=== PATIENT | female | born 1965 | race Caucasian/White ===

== ENCOUNTER 2020-08-18 15:10 | Emergency (ER) | payer OTHER ==
[~2020-08-18] VITALS: Ht 177.8 cm; Wt 95.3 kg
[2020-08-18] MEDS ORDERED: EMPA10TA PO (15:18)
[2020-08-18] MEDS ORDERED: ONDANSETRON 4 MG/2 ML VIAL IV ONE (15:30)
[2020-08-18] MEDS ORDERED: HYDROMORPHONE 1 MG/1 ML DISP.SYRIN IV ONE (15:30)
[2020-08-18] MEDS ORDERED: IV NORMAL SALINE 1000 ML BAG IV ONE (15:30)
[2020-08-18] MEDS ORDERED: ONDANSETRON 4 MG/2 ML VIAL ONE (15:33)
[2020-08-18] MEDS ORDERED: HYDROMORPHONE 1 MG/1 ML DISP.SYRIN ONE (15:35)
[2020-08-18 15:37] LABS: *BILIRUBIN,URIN NEGATIVE (NEGATIVE); *CLARITY,URINE CLEAR (CLEAR); *COLOR,URINE YELLOW (YELLOW); *KETONES,URINE 4+ (NEGATIVE); *UROBILINOGEN,URINE 0.2 E.U./dl (NORMAL); LEUKOCYTE ESTERASE ,URINE NEGATIVE (NEGATIVE); NITRITE, URINE NEGATIVE (NEGATIVE); PH,URINE 5.5 (5.0-8.0)
[2020-08-18 15:38] LABS: *BLOOD, URINE TRACE (NEGATIVE); UGLUCOSE 2+ (NEGATIVE)
[2020-08-18 15:39] LABS: *URINE HCG, QUAL NEGATIVE (NEGATIVE)
[2020-08-18 15:45] LABS: BASOPHILS % (AUTO) 0.2 % (0.0-2.0); EOSINOPHILS % (AUTO) 0.1 % (0.0-7.0); HEMATOCRIT 43.4 % (31.2-41.9); LYMPHOCYTES # (AUTO) 0.3 K/uL (20.0-40.0); LYMPHOCYTES % (AUTO) 3.6 % (20.5-51.5); MEAN CORPUSCULAR HEMOGLOBIN 29.3 uug (24.7-32.8); MEAN CORPUSCULAR HGB CONC 35 g/dL (32.3-35.6); MEAN CORPUSCULAR VOLUME 84.9 fL (75.5-95.3); MONOCYTES # (AUTO) 0.5 K/uL (2.0-10.0); MONOCYTES % (AUTO) 6.3 % (0.0-11.0); NEUTROPHILS # (AUTO) 7.5 K/uL (1.8-8.9); NEUTROPHILS % (AUTO) 89.8 % (38.5-71.5); PLATELET COUNT (AUTO) 126 K/uL (179-408); RED BLOOD CELL COUNT(AUTO) 5.11 MIL/uL (3.63-4.92); WHITE BLOOD COUNT (AUTO) 8.4 K/uL (3.8-11.8)
[2020-08-18 15:51] LABS: POTASSIUM 4.1 mmol/L (3.5-5.1)
[2020-08-18 15:56] LABS: BILIRUBIN,DIRECT 0.3 mg/dL (0.0-0.2); BILIRUBIN,TOTAL 1.3 mg/dL (0.2-1.0); TOTAL PROTEIN, SERUM 7.2 g/dL (6.4-8.2)
--- NOTE | 2020-08-18 16:46 | NUR ---
Patient is resting comfortably in bed with eyes closed, NAD noted.
--- NOTE | 2020-08-18 17:31 | NUR ---
IV removed. Catheter intact and site benign. Pressure and 4x4 gauze applied to site. No bleeding noted.
--- NOTE | 2020-08-18 17:31 | NUR ---
Patient discharged to home in stable condition. Written and verbal after care instructions given. Patient verbalizes understanding of instructions. Stressed follow up or return to ER for worsening s/s.
--- NOTE | 2020-08-18 17:31 | NUR ---
Note [email or web address] in EDM - 08/18/20 at 1731 by MYOUABIAN IV removed. Catheter intact and site benign. Pressure and 4x4 gauze applied to site. No bleeding noted.
[2020-08-18 17:32] VITALS: BP 140/79
[2020-08-18 19:32] LABS: RBC,URINE 0-3 /HPF (0-3); WBC,URINE 0-3 /HPF (0-3)
[2020-08-18 19:33] LABS: BACTERIA,URINE NONE SEEN /HPF (NONE SEEN); SQUAMOUS EPITHELIAL CELL,UR NONE SEEN /HPF (NONE SEEN); YEAST,URINE RARE /HPF (NONE SEEN)
== END 2020-08-18 17:37 | disposition home or self-care (01) ==
LOC: ER 15:10
DX: M47.896 Other spondylosis, lumbar region (principal); R30.0 Dysuria; R50.9 Fever, unspecified; R11.0 Nausea; E11.9 Type 2 diabetes mellitus without complications; Z79.84 Long term (current) use of oral hypoglycemic drugs; Z88.0 Allergy status to penicillin; Z88.2 Allergy status to sulfonamides
CPT/HCPCS: 36415; 72100; 80048; 80076; 81001; 83690; 84703; 85025; 87086 ×2; 96361; 96374; 96375; 99284; J1170; J2405; A4663

== ENCOUNTER 2020-08-27 14:04 | Inpatient (IN) | payer OTHER ==
[~2020-08-27] VITALS: Ht 177.8 cm; Wt 95.3 kg
[~2020-08-27 14:04] MED LIST: EMPA10TA PO
[2020-08-27] MEDS ORDERED: HYDROMORPHONE 1 MG/1 ML DISP.SYRIN IV ONE ×2 (14:30→16:30)
[2020-08-27] MEDS ORDERED: IV NORMAL SALINE 1000 ML BAG IV ONE (14:30)
[2020-08-27] MEDS ORDERED: VANCOMYCIN IV 1,000 MG in IV DEXTROSE 5% 250 ML IV ONE (14:30)
[2020-08-27] MEDS ORDERED: ONDANSETRON 4 MG/2 ML VIAL IV ONE ×2 (14:30→16:30)
[2020-08-27] MEDS ORDERED: HYDROMORPHONE 1 MG/1 ML DISP.SYRIN ONE ×2 (14:38→16:31)
[2020-08-27] MEDS ORDERED: ONDANSETRON 4 MG/2 ML VIAL ONE ×2 (14:39→16:31)
[2020-08-27] MEDS ORDERED: VANCOMYCIN IV 200 ML ONE (14:39)
[2020-08-27 14:51] LABS: BASOPHILS # (AUTO) 0.2 K/uL (0.0-8.0); BASOPHILS % (AUTO) 1.3 % (0.0-2.0); EOSINOPHILS % (AUTO) 0.2 % (0.0-7.0); HEMATOCRIT 39.1 % (31.2-41.9); HEMOGLOBIN 13.2 g/dL (10.9-14.3); LYMPHOCYTES # (AUTO) 0.5 K/uL (20.0-40.0); LYMPHOCYTES % (AUTO) 2.9 % (20.5-51.5); MEAN CORPUSCULAR HEMOGLOBIN 28.3 uug (24.7-32.8); MEAN CORPUSCULAR HGB CONC 34 g/dL (32.3-35.6); MEAN CORPUSCULAR VOLUME 83.7 fL (75.5-95.3); MONOCYTES # (AUTO) 0.7 K/uL (2.0-10.0); MONOCYTES % (AUTO) 4.2 % (0.0-11.0); NEUTROPHILS # (AUTO) 14.9 K/uL (1.8-8.9); NEUTROPHILS % (AUTO) 91.4 % (38.5-71.5); PLATELET COUNT (AUTO) 297 K/uL (179-408); RED BLOOD CELL COUNT(AUTO) 4.67 MIL/uL (3.63-4.92); WHITE BLOOD COUNT (AUTO) 16.3 K/uL (3.8-11.8)
[2020-08-27 15:10] LABS: BILIRUBIN,DIRECT 0.4 mg/dL (0.0-0.2); BILIRUBIN,TOTAL 0.8 mg/dL (0.2-1.0); CREATININE 0.8 mg/dL (0.6-1.3); TOTAL PROTEIN, SERUM 6.6 g/dL (6.4-8.2)
[2020-08-27 15:27] LABS: POTASSIUM 2.8 mmol/L (3.5-5.1)
[2020-08-27] MEDS ORDERED: POTASSIUM CHLORIDE 20 MEQ TAB.PRT.SR PO ONE (15:45)
[2020-08-27] MEDS ORDERED: POTASSIUM CHLORIDE 20 MEQ TAB.PRT.SR ONE (15:55)
--- NOTE | 2020-08-27 16:06 | NUR ---
DENICE FROM [facility] CALLED AND GOT THE UPDATE ON THE PT CASE.
--- NOTE | 2020-08-27 16:40 | NUR ---
PT AUTHORIZED TO STAY HERE AT [facility] BY [facility].
[2020-08-27] MEDS ORDERED: INSULIN REGULAR, HUMAN 300 UNIT/3 ML VIAL SQ PRN (17:45)
[2020-08-27] MEDS ORDERED: DEXTROSE 50% 50 ML DISP.SYRIN IV PRN (17:45)
[2020-08-27] MEDS ORDERED: MAGNESIUM HYDROXIDE 30 ML LIQUID UDC PO PRN (17:45)
[2020-08-27] MEDS ORDERED: levoFLOXacin 500 MG/D5W 100 ML ONE (18:32)
[2020-08-27] MEDS: levoFLOXacin 500 MG/D5W 500 MG in PREMIXED 1 EACH IV SCH (18:34)
--- NOTE | 2020-08-27 19:14 | NUR ---
assissted pt to bathroom, unsteady gait, fall risk
[2020-08-27] MEDS: HYDROCODONE/APAP 5-325MG TABLET PO PRN (20:19)
[2020-08-27] MEDS ORDERED: HYDROCODONE/APAP 5-325MG TABLET ONE (20:23)
[2020-08-27] MEDS: BLOOD SUGAR DIAGNOSTIC 1 EACH STRIP VI SCH (21:25)
--- NOTE | 2020-08-27 21:33 | NUR ---
ACUU CHECK = 137, PT TO RECEIVE 2 UNITS INSULIN SQ, PT REFUSED
[2020-08-27] MEDS ORDERED: INSULIN REGULAR, HUMAN 300 UNIT/3 ML VIAL ONE (21:34)
[2020-08-27] MEDS: MORPHINE SULFATE 2 MG/1 ML DISP.SYRIN IV PRN (21:58)
[2020-08-27] MEDS ORDERED: MORPHINE SULFATE 2 MG/1 ML DISP.SYRIN ONE (22:01)
[2020-08-28] MEDS ORDERED: VANCOMYCIN HCL 500 MG VIAL ONE (00:47)
[2020-08-28] MEDS ORDERED: VANCOMYCIN 1000 MG VIAL ONE (00:47)
[2020-08-28] MEDS: ACETAMINOPHEN 325 MG TABLET PO PRN (00:58)
[2020-08-28] MEDS ORDERED: ACETAMINOPHEN 325 MG TABLET ONE (01:00)
[2020-08-28] MEDS ORDERED: VANCOMYCIN IV 1,500 MG in IV DEXTROSE 5% 500 ML IV ONE (01:00)
--- NOTE | 2020-08-28 01:13 | NUR ---
SBAR REPORT TO CARLOS ROCA. PT'S BELONGIMGS LIST DONE. [facility]
[2020-08-28 01:35] VITALS: BP 150/73
--- NOTE | 2020-08-28 02:05 | NUR ---
Received pt via micheal admitted to [facility], diagnosis Cellulitis RLL. Axox4, able to make needs known. Elevated BP and 100.1 Temperature, cooling measures completed. Complaint of generalized body pain 08/11, stated "feels like im being stabbed by sharp knives all over." IV 20G left hand intact and running Vanco, no adverse reaction noted. Skin intact: noted right hand swelling and slightly pink pitting +2, Right toe scab and pink, lower right leg pink/red cellulites. Pictures taken and placed in chart. Belongings list checked and placed in chart. Will continue to monitor through the night.
[2020-08-28] MEDS: MORPHINE SULFATE 2 MG/1 ML DISP.SYRIN IV PRN ×7 (02:32→22:56)
--- NOTE | 2020-08-28 02:36 | NUR ---
complaint of generalized body pain 06/11, per pt request administered Morphine PRN.
[2020-08-28 04:00] VITALS: BP 145/79
--- NOTE | 2020-08-28 04:25 | NUR ---
UA collected and sent to lab
[2020-08-28 04:32] LABS: *BILIRUBIN,URIN NEGATIVE (NEGATIVE); *BLOOD, URINE NEGATIVE (NEGATIVE); *CLARITY,URINE CLEAR (CLEAR); *COLOR,URINE YELLOW (YELLOW); *KETONES,URINE TRACE (NEGATIVE); *UROBILINOGEN,URINE 0.2 E.U./dl (NORMAL); LEUKOCYTE ESTERASE ,URINE NEGATIVE (NEGATIVE); NITRITE, URINE NEGATIVE (NEGATIVE); PH,URINE 6.5 (5.0-8.0); UGLUCOSE 2+ (NEGATIVE)
[2020-08-28] MEDS: PANTOPRAZOLE SODIUM 40 MG TABLET.DR PO SCH (06:38)
[2020-08-28] MEDS: BLOOD SUGAR DIAGNOSTIC 1 EACH STRIP VI SCH ×4 (06:45→21:51)
--- NOTE | 2020-08-28 06:48 | NUR ---
Pt crying, in distress because " everything hurts" complaint of 10/10 pain, whole body, administered Morphine PRN.
--- NOTE | 2020-08-28 08:19 | NUR ---
patient refused insulin coverage, no signs and symptoms of hyperglycemia noted, no acute distress noted
[2020-08-28 08:37] LABS: CREATININE 0.8 mg/dL (0.6-1.3); MAGNESIUM 2.3 mg/dL (1.8-2.4); PHOSPHOROUS 3.9 mg/dL (2.5-4.9); POTASSIUM 3.1 mmol/L (3.5-5.1)
[2020-08-28 08:43] LABS: BASOPHILS % (AUTO) 0.2 % (0.0-2.0); EOSINOPHILS % (AUTO) 0.2 % (0.0-7.0); HEMATOCRIT 36.7 % (31.2-41.9); HEMOGLOBIN 12.4 g/dL (10.9-14.3); LYMPHOCYTES # (AUTO) 0.6 K/uL (20.0-40.0); LYMPHOCYTES % (AUTO) 4.2 % (20.5-51.5); MEAN CORPUSCULAR HEMOGLOBIN 28.8 uug (24.7-32.8); MEAN CORPUSCULAR HGB CONC 34 g/dL (32.3-35.6); MEAN CORPUSCULAR VOLUME 85.2 fL (75.5-95.3); MONOCYTES # (AUTO) 1.1 K/uL (2.0-10.0); MONOCYTES % (AUTO) 7.3 % (0.0-11.0); NEUTROPHILS # (AUTO) 12.8 K/uL (1.8-8.9); NEUTROPHILS % (AUTO) 88.1 % (38.5-71.5); PLATELET COUNT (AUTO) 290 K/uL (179-408); RED BLOOD CELL COUNT(AUTO) 4.31 MIL/uL (3.63-4.92); WHITE BLOOD COUNT (AUTO) 14.6 K/uL (3.8-11.8)
[2020-08-28] MEDS ORDERED: EMPAGLIFLOZIN PO SCH (09:00)
[2020-08-28] MEDS: ENOXAPARIN SODIUM 40 MG/0.4 ML DISP.SYRIN SQ SCH (09:29)
[2020-08-28] MEDS ORDERED: POTASSIUM CHLORIDE 20 MEQ TAB.PRT.SR PO ONE (10:15)
[2020-08-28] MEDS: LISINOPRIL 5 MG TABLET PO SCH (10:39)
[2020-08-28 11:20] VITALS: BP 161/87
[2020-08-28] MEDS: VANCOMYCIN IV 1,250 MG in IV DEXTROSE 5% 250 ML IV SCH (13:44)
[2020-08-28 15:26] LABS: BAND % (MANUAL) 2 % (0-10); LYMPHOCYTES % (MANUAL) 6 % (20-40); MONOCYTES % (MANUAL) 7 % (2-10); NEUTROPHILS % (MANUAL) 85 % (42-75)
[2020-08-28 15:50] VITALS: BP 160/86
--- NOTE | 2020-08-28 15:54 | NUR ---
PATIENT REFUSED TO PUT IV LINE OR MIDLINE, TRIED TO EXPLAIN TO PATIENT, PATIENT STATED SHE FEELS FINE AND DOES NOT WANT ANY IV OR MIDLINE ACCESS. Addendum: 08/28/20 at 1559 by SIMON SOLORZANO RN RN DISCARD ABOVE CHARTING WRONG PATIENT
--- NOTE | 2020-08-28 16:40 | NUR ---
patient refused to have insulin coverage, risks and benefits explained, still refused, no signs or symptoms of hyperglycemia noted at this time, no acute distress noted
[2020-08-28] MEDS: levoFLOXacin 500 MG/D5W 500 MG in PREMIXED 1 EACH IV SCH (16:50)
--- NOTE | 2020-08-28 19:15 | NUR ---
PATIENT OWN MEDICATION RECEIVED AND DELIVERED TO PHARMACY, OKAYED BY MD ESCOBAR
[2020-08-28] MEDS: HYDROCODONE/APAP 5-325MG TABLET PO PRN (20:25)
[2020-08-28 20:52] VITALS: BP 155/80
--- NOTE | 2020-08-28 22:00 | NUR ---
[facility] called and inquire pt's info; faxed covid result.
--- NOTE | 2020-08-28 22:00 | NUR ---
Pt's blood sugar is 150; pt refused SS
[2020-08-28] MEDS: ALPRAZOLAM 0.5 MG TABLET PO PRN (22:50)
--- NOTE | 2020-08-28 23:00 | NUR ---
Pt re swabbed for Covid; Pt has positive blood culture; relayed to Dr Aguilar; awaiting response; indeterminate result for covid also faxed to [facility] and they called back to confirm.
[2020-08-29] MEDS: MORPHINE SULFATE 2 MG/1 ML DISP.SYRIN IV PRN ×3 (01:43→09:53)
[2020-08-29] MEDS: VANCOMYCIN IV 1,250 MG in IV DEXTROSE 5% 250 ML IV SCH ×2 (01:44→16:11)
[2020-08-29 05:38] VITALS: BP 151/85
[2020-08-29] MEDS: PANTOPRAZOLE SODIUM 40 MG TABLET.DR PO SCH (05:50)
[2020-08-29] MEDS: HYDROCODONE/APAP 5-325MG TABLET PO PRN ×3 (05:51→22:51)
--- NOTE | 2020-08-29 06:00 | NUR ---
Pt complaint of pain multiple times and addressed accordingly.
[2020-08-29] MEDS: BLOOD SUGAR DIAGNOSTIC 1 EACH STRIP VI SCH (06:16)
--- NOTE | 2020-08-29 06:52 | NUR ---
low grade fever and breakthrough pain and given [place].
[2020-08-29 07:43] LABS: BASOPHILS % (AUTO) 0.2 % (0.0-2.0); EOSINOPHILS % (AUTO) 0.2 % (0.0-7.0); HEMATOCRIT 34.1 % (31.2-41.9); HEMOGLOBIN 11.6 g/dL (10.9-14.3); LYMPHOCYTES # (AUTO) 0.7 K/uL (20.0-40.0); LYMPHOCYTES % (AUTO) 5.2 % (20.5-51.5); MEAN CORPUSCULAR HEMOGLOBIN 28.9 uug (24.7-32.8); MEAN CORPUSCULAR HGB CONC 34 g/dL (32.3-35.6); MEAN CORPUSCULAR VOLUME 84.9 fL (75.5-95.3); MONOCYTES % (AUTO) 6.9 % (0.0-11.0); NEUTROPHILS # (AUTO) 12.3 K/uL (1.8-8.9); NEUTROPHILS % (AUTO) 87.5 % (38.5-71.5); PLATELET COUNT (AUTO) 251 K/uL (179-408); RED BLOOD CELL COUNT(AUTO) 4.02 MIL/uL (3.63-4.92); WHITE BLOOD COUNT (AUTO) 14.1 K/uL (3.8-11.8)
[2020-08-29 08:04] LABS: BILIRUBIN,TOTAL 0.5 mg/dL (0.2-1.0); CREATININE 0.9 mg/dL (0.6-1.3); MAGNESIUM 2.4 mg/dL (1.8-2.4); POTASSIUM 3.5 mmol/L (3.5-5.1); TOTAL PROTEIN, SERUM 6.2 g/dL (6.4-8.2)
[2020-08-29] MEDS: EMPAGLIFLOZIN 25 MG PO SCH (09:36)
[2020-08-29] MEDS: [UNRECOGNIZED DRUG - OTHER] PO SCH (09:36)
[2020-08-29] MEDS: RYBELSUS 7 MG PO SCH (09:36)
[2020-08-29] MEDS: ENOXAPARIN SODIUM 40 MG/0.4 ML DISP.SYRIN SQ SCH (09:39)
[2020-08-29] MEDS: LISINOPRIL 5 MG TABLET PO SCH (09:45)
[2020-08-29 11:17] LABS: THYROID STIMULATING HORMONE 1.507 mIU/mL (0.358-3.740)
[2020-08-29 11:45] VITALS: BP 137/79
[2020-08-29] MEDS: HYDROMORPHONE 1 MG/1 ML DISP.SYRIN SQ PRN ×2 (13:12→16:30)
[2020-08-29 15:38] VITALS: BP 123/74
[2020-08-29] MEDS: levoFLOXacin 500 MG/D5W 500 MG in PREMIXED 1 EACH IV SCH (17:51)
[2020-08-29 20:06] VITALS: BP 156/89
[2020-08-29] MEDS: HYDROMORPHONE 1 MG/1 ML DISP.SYRIN IVP PRN ×2 (20:30→21:35)
--- NOTE | 2020-08-29 21:05 | NUR ---
Patient c/o pain,Medicated with Dilaudid given 1mg. Clarified order with regarding Dilaudid.Changed from SQ to IVP.Noted and carried out.Call light with in reach. Safety measures in place.Will continue to monitor.
[2020-08-29] MEDS: ALPRAZOLAM 0.5 MG TABLET PO PRN (21:50)
--- NOTE | 2020-08-29 22:59 | NUR ---
Breakthrough pain. Medicated with [place]. Repositioned patient with 2 person assists.Voided well using bedpan.
[2020-08-30] MEDS: HYDROMORPHONE 1 MG/1 ML DISP.SYRIN IVP PRN ×7 (02:40→23:10)
[2020-08-30] MEDS: VANCOMYCIN IV 1,250 MG in IV DEXTROSE 5% 250 ML IV SCH ×2 (04:01→15:29)
[2020-08-30 04:06] VITALS: BP 125/72
[2020-08-30] MEDS: PANTOPRAZOLE SODIUM 40 MG TABLET.DR PO SCH (06:02)
[2020-08-30 07:09] LABS: BASOPHILS % (AUTO) 0.3 % (0.0-2.0); EOSINOPHILS # (AUTO) 0.1 K/uL (0.0-0.7); EOSINOPHILS % (AUTO) 0.4 % (0.0-7.0); HEMATOCRIT 33.5 % (31.2-41.9); HEMOGLOBIN 11.6 g/dL (10.9-14.3); LYMPHOCYTES # (AUTO) 0.8 K/uL (20.0-40.0); LYMPHOCYTES % (AUTO) 7.3 % (20.5-51.5); MEAN CORPUSCULAR HEMOGLOBIN 29.5 uug (24.7-32.8); MEAN CORPUSCULAR HGB CONC 35 g/dL (32.3-35.6); MEAN CORPUSCULAR VOLUME 85.1 fL (75.5-95.3); MONOCYTES # (AUTO) 0.7 K/uL (2.0-10.0); MONOCYTES % (AUTO) 6.4 % (0.0-11.0); NEUTROPHILS # (AUTO) 9.7 K/uL (1.8-8.9); NEUTROPHILS % (AUTO) 85.6 % (38.5-71.5); PLATELET COUNT (AUTO) 246 K/uL (179-408); RED BLOOD CELL COUNT(AUTO) 3.94 MIL/uL (3.63-4.92); WHITE BLOOD COUNT (AUTO) 11.4 K/uL (3.8-11.8)
[2020-08-30 07:38] LABS: CREATININE 1.2 mg/dL (0.6-1.3); MAGNESIUM 2.3 mg/dL (1.8-2.4); PHOSPHOROUS 4.7 mg/dL (2.5-4.9); POTASSIUM 3.9 mmol/L (3.5-5.1); URIC ACID 5.5 mg/dL (2.6-6.0)
--- NOTE | 2020-08-30 07:55 | NUR ---
Awake, alert, oriented x 4, complaining of right foot pain
[2020-08-30] MEDS: LISINOPRIL 5 MG TABLET PO SCH (08:19)
[2020-08-30 08:21] VITALS: BP 155/86
[2020-08-30] MEDS: [UNRECOGNIZED DRUG - OTHER] PO SCH (08:40)
[2020-08-30] MEDS: EMPAGLIFLOZIN 25 MG PO SCH (08:40)
[2020-08-30] MEDS: RYBELSUS 7 MG PO SCH (08:40)
[2020-08-30] MEDS: ONDANSETRON 4 MG/2 ML VIAL IV PRN ×2 (10:26→21:58)
[2020-08-30] MEDS: ENOXAPARIN SODIUM 40 MG/0.4 ML DISP.SYRIN SQ SCH (10:27)
--- NOTE | 2020-08-30 11:40 | NUR ---
WOUND CARE CONSULT: REVIEWED CHART,NURSING DOCUMENTATION AND PHOTO WHICH SHOWS RT GREAT TOE DISCOLORATION, PRESENT ON ADMISSION. RECOMMEND DPM CONSULT. DR TAYLOR NOTIFIED OF CONSULT REQUEST. DISCUSSED SKIN PROTECTION WITH NURSING STAFF. MD IN AGREEMENT WITH PLAN OF CARE.
[2020-08-30] MEDS ORDERED: Z GUARD REMEDY PASTE 57 GM TUBE TOP PRN (11:45)
--- NOTE | 2020-08-30 12:09 | NUR ---
WOUND CARE: PT WAS SEEN FOR SKIN ASSESSMENT. PT NOTED TO HAVE DISCOLORED AREA WITH CRUSTING TO RT GREAT TOE, PRESENT ON ADMISSION. SKIN IS OTHERWISE INTACT. PT IS ABLE TO ASSIST WITH TURNING AND REPOSITIONING IN BED BUT SHE SCREAMS SHE DOES SO, REPORTING THAT HER RT HIP IS PAINFUL. PT IS INCONTINENT OF URINE. RECOMMENDATIONS MADE FOR SKIN PROTECTION. DISCUSSED WITH NURSING STAFF. MD IN AGREEMENT WITH PLAN OF CARE.
[2020-08-30 12:43] VITALS: BP 180/97
[2020-08-30 16:08] VITALS: BP 158/84
--- NOTE | 2020-08-30 17:00 | NUR ---
Patient complained of popping sensation on right ankle, examined noted redness, swelling and indentation. Seen by map compiler. Beata jeter.
[2020-08-30] MEDS ORDERED: OXYCODONE HCL 5 MG TABLET PO PRN (17:45)
--- NOTE | 2020-08-30 18:00 | NUR ---
CTA chest ordered bur patient said she has allergies to contrast. VQ scan ordered but per radiology Jaky, VQ scan will not be done to all patient.
--- NOTE | 2020-08-30 18:30 | NUR ---
Patient complained of right foot pain. Discussed order and plan of pain management Dr. Bradshaw, given the option and agreed with oral PRN medication as ordered, given. Endorsed for further care
[2020-08-30] MEDS: IV NS 1000 ML 1,000 ML IV PRN (18:39)
--- NOTE | 2020-08-30 19:30 | NUR ---
Pt received awake and alert in bed. C/o right leg pain. Requesting more pain meds. No SOB. No acute distress noted. No other issues or concerns at this time.
[2020-08-30 20:09] VITALS: BP 173/93
[2020-08-30] MEDS: ENOXAPARIN SODIUM 100 MG/ML DISP.SYRIN SQ SCH (21:00)
--- NOTE | 2020-08-30 21:00 | NUR ---
Lovenox isn't loaded in pyxis. Waiting for nursing chimney construction supervisor to bring it up
[2020-08-30] MEDS ORDERED: ENOXAPARIN SODIUM 100 MG/ML DISP.SYRIN SQ ONE (23:59)
[2020-08-31] MEDS: HYDROMORPHONE 1 MG/1 ML DISP.SYRIN IVP PRN ×7 (02:22→22:40)
[2020-08-31] MEDS: HYDROCODONE/APAP 5-325MG TABLET PO PRN ×3 (03:33→20:35)
[2020-08-31 04:06] VITALS: BP 153/78
[2020-08-31] MEDS: VANCOMYCIN IV 1,250 MG in IV DEXTROSE 5% 250 ML IV SCH (06:07)
[2020-08-31] MEDS: PANTOPRAZOLE SODIUM 40 MG TABLET.DR PO SCH (06:18)
[2020-08-31 06:31] LABS: MAGNESIUM 2.4 mg/dL (1.8-2.4); PHOSPHOROUS 4.4 mg/dL (2.5-4.9)
[2020-08-31 06:35] LABS: BASOPHILS % (AUTO) 0.2 % (0.0-2.0); EOSINOPHILS % (AUTO) 0.3 % (0.0-7.0); HEMATOCRIT 34.9 % (31.2-41.9); HEMOGLOBIN 11.8 g/dL (10.9-14.3); LYMPHOCYTES # (AUTO) 0.6 K/uL (20.0-40.0); LYMPHOCYTES % (AUTO) 6.9 % (20.5-51.5); MEAN CORPUSCULAR HEMOGLOBIN 28.7 uug (24.7-32.8); MEAN CORPUSCULAR HGB CONC 34 g/dL (32.3-35.6); MEAN CORPUSCULAR VOLUME 84.6 fL (75.5-95.3); MONOCYTES # (AUTO) 0.6 K/uL (2.0-10.0); MONOCYTES % (AUTO) 6.8 % (0.0-11.0); NEUTROPHILS # (AUTO) 7.9 K/uL (1.8-8.9); NEUTROPHILS % (AUTO) 85.8 % (38.5-71.5); PLATELET COUNT (AUTO) 241 K/uL (179-408); RED BLOOD CELL COUNT(AUTO) 4.13 MIL/uL (3.63-4.92); WHITE BLOOD COUNT (AUTO) 9.3 K/uL (3.8-11.8)
--- NOTE | 2020-08-31 07:53 | NUR ---
Pt slept intermittently throughout the night. C/o of R leg pain throughout the night. Given pain meds per request. Denies SOB. MRI checklist complete. No other issues or concerns at this time. Will endorse to day shift.
[2020-08-31] MEDS: LISINOPRIL 5 MG TABLET PO SCH (09:27)
[2020-08-31] MEDS: METOPROLOL SUCCINATE XL 25 MG TAB.SR.24H PO SCH (09:27)
[2020-08-31] MEDS: ENOXAPARIN SODIUM 100 MG/ML DISP.SYRIN SQ SCH ×2 (09:29→20:36)
--- NOTE | 2020-08-31 10:42 | NUR ---
I CALLED KIKE KERR, THE EDUCATION AND TRAINING MANAGER TO FIND OUT IF SHE KNEW ABOUT THE ORDER FOR A PULMONARY VQ SCAN THAT WAS ORDERED YESTERDAY, SHE SAID SHE DID AND HAD SPOKEN TO 2 DIFFERENT PEOPLE YESTERDAY IN THAT REGARD. i TOLD HER THAT THE PATIENT COVID19 TEST IS NEGATIVE AND SHE SAID IT DIDN'T MATTER, THAT THE TYPE OF SCAN WAS TOO CONTAGIOUS AND WE DON'T DO IT HERE ([facility]) SHE ASKED ME TO TRANSFER HER TO THE FLOOR AND SHE SAID SHE WOULD TALK TO THE NURSE ABOUT IT.
[2020-08-31] MEDS: RYBELSUS 7 MG PO SCH (10:51)
[2020-08-31] MEDS: EMPAGLIFLOZIN 25 MG PO SCH (10:51)
[2020-08-31] MEDS: [UNRECOGNIZED DRUG - OTHER] PO SCH (10:51)
--- NOTE | 2020-08-31 11:25 | NUR ---
SW NOTE: SW consult requested by and Kaitlin to met with patient regarding concerns. SW met with patient who presented agitated, laying in bed. Patient expressed that she "doesn't know what is going on". Patient stated that she has "been through this before". Patient seems to be minimizing her symptoms. SW listened to patient's concerns and stated that she will pass on the concerns to the doctor and the nurse. Per nursing, patient does not want to take oral pain medications as they want to transition her from the IV. Patient stated that she prefers the IV as it manages her pain more, however patient states that when she goes home, she "is able to manage her pain by taking oral pain medication". Patient is focused on being transferred to [facility] and stated "I don't think I am receiving the best care". SW asked if doctors have been in communication with her regarding her treatment and patient indicated "yes but not enough". Patient stated that her "friend is an OBGYN and that she has been contacting her regarding what medications she is on". Patient stated that her friend indicated "she is on too much antibiotics". SW also addressed why the patient does not want to participate in physical therapy. Patient stated "I told them to get out because I am in too much pain to get out of bed". SW encouraged patient to try to motivate herself to engage in physical therapy and patient is not cooperative. SW forwarded the concerns to the nurse Osorio who is aware of the current situation.
[2020-08-31 12:00] VITALS: BP 137/71
--- NOTE | 2020-08-31 12:30 | NUR ---
Patient transported via ambulance to MRI.
--- NOTE | 2020-08-31 14:35 | NUR ---
JOSÉ NOTE: JOSÉ spoke with Dr. Cota regarding the patient's sister's concerns and requested this social media marketing analyst to speak with her. JOSÉ called patient's sister, Shruthi ([phone]) and addressed her concerns regarding patient's care. Per Shruthi, she was not receiving calls from the hospital with updates and therefore she took responsibility in calling and paging the doctors. JOSÉ informed that the doctor will surely call her with important information and should there be any concerns. JOSÉ reassured Shruthi regarding boundaries. JOSÉ will remain available for the patient, family and MD.
--- NOTE | 2020-08-31 15:00 | NUR ---
Patient back from MRI, repositioned comfortably.
[2020-08-31] MEDS: IV NS 1000 ML 1,000 ML IV PRN (15:25)
[2020-08-31 16:38] VITALS: BP 134/65
[2020-08-31] MEDS: CEFAZOLIN 2 G in IV DEXTROSE 5% 100 ML IV SCH (18:24)
--- NOTE | 2020-08-31 18:30 | NUR ---
Given dilaudid for pain. Repositioned comfortably.
--- NOTE | 2020-08-31 19:55 | NUR ---
Received patient in bed. awake alert x4.On RA.No s/s of distress noted.Rt leg elevated with pillow.Iv on left hand 22 g patent and intact with Ns at 60 cc/ml.Due meds given and pain medications as ordered.Call light with in reach.
[2020-08-31 20:50] VITALS: BP 169/88
[2020-08-31] MEDS ORDERED: CEFAZOLIN 1 G in IV DEXTROSE 5% 50 ML IV SCH (22:00)
[2020-09-01] MEDS: CEFAZOLIN 2 G in IV DEXTROSE 5% 100 ML IV SCH ×2 (01:23→10:17)
[2020-09-01] MEDS: HYDROMORPHONE 1 MG/1 ML DISP.SYRIN IVP PRN ×6 (01:49→22:23)
[2020-09-01 04:22] VITALS: BP 122/64
[2020-09-01] MEDS: ONDANSETRON 4 MG/2 ML VIAL IV PRN (04:59)
[2020-09-01] MEDS: PANTOPRAZOLE SODIUM 40 MG TABLET.DR PO SCH (06:40)
[2020-09-01 07:04] LABS: BASOPHILS % (AUTO) 0.2 % (0.0-2.0); EOSINOPHILS % (AUTO) 0.4 % (0.0-7.0); HEMATOCRIT 32.3 % (31.2-41.9); HEMOGLOBIN 11.1 g/dL (10.9-14.3); LYMPHOCYTES # (AUTO) 0.7 K/uL (20.0-40.0); LYMPHOCYTES % (AUTO) 6.5 % (20.5-51.5); MEAN CORPUSCULAR HGB CONC 34 g/dL (32.3-35.6); MEAN CORPUSCULAR VOLUME 84.7 fL (75.5-95.3); MONOCYTES # (AUTO) 0.7 K/uL (2.0-10.0); MONOCYTES % (AUTO) 6.7 % (0.0-11.0); NEUTROPHILS # (AUTO) 9.1 K/uL (1.8-8.9); NEUTROPHILS % (AUTO) 86.2 % (38.5-71.5); PLATELET COUNT (AUTO) 263 K/uL (179-408); RED BLOOD CELL COUNT(AUTO) 3.81 MIL/uL (3.63-4.92); WHITE BLOOD COUNT (AUTO) 10.6 K/uL (3.8-11.8)
[2020-09-01 07:15] LABS: CREATININE 1.1 mg/dL (0.6-1.3); MAGNESIUM 3.3 mg/dL (1.8-2.4); PHOSPHOROUS 4.1 mg/dL (2.5-4.9); POTASSIUM 4.2 mmol/L (3.5-5.1)
[2020-09-01] MEDS: LISINOPRIL 5 MG TABLET PO SCH (08:14)
[2020-09-01] MEDS: METOPROLOL SUCCINATE XL 25 MG TAB.SR.24H PO SCH (08:14)
[2020-09-01] MEDS: ENOXAPARIN SODIUM 100 MG/ML DISP.SYRIN SQ SCH ×2 (08:15→21:46)
--- NOTE | 2020-09-01 08:47 | NUR ---
SW NOTE: SW received a call from patient's sister, Shruthi ([phone]) with concerns regarding her conversation with the pain specialist yesterday and concerns regarding the nursing assistance. This social science professor listened to her concerns and stated that she will address them and pass on the message to Dr. Cota. Shruthi stated that she does not want to take her chances with taking the patient out of the hospital and risk her chances with not being admitted to [facility].
[2020-09-01] MEDS: RYBELSUS 7 MG PO SCH (10:17)
[2020-09-01] MEDS: JARDIANCE 25 MG PO SCH (10:17)
[2020-09-01 12:00] VITALS: BP 155/92
[2020-09-01] MEDS ORDERED: METO-356 PO (12:18)
[2020-09-01] MEDS ORDERED: LISI-607 PO (12:18)
[2020-09-01] MEDS ORDERED: OXYC5TAB3 PO (12:18)
[2020-09-01] MEDS ORDERED: HYDR-4354 PO (13:42)
[2020-09-01] MEDS ORDERED: ENOX40DI SUBCUT (13:50)
--- NOTE | 2020-09-01 14:29 | NUR ---
SW Family Contact: This SW spoke with patient's Isaac ([phone]) and stated this SW arrange transportation through [facility] ([phone]) and will cost around $170 dollars. Isaac stated he would pay for it.
--- NOTE | 2020-09-01 14:30 | NUR ---
SW Transportation: This SW contacted [facility] ([phone]) and spoke with Gasper who arranged transportation around 5:30/6PM and will contact family to pay.
--- NOTE | 2020-09-01 14:36 | NUR ---
SW Transportation: This SW contacted [facility] ([phone]) and spoke with Gasper who stated Isaac ([phone]) paid for transportation.
[2020-09-01 15:57] VITALS: BP 143/78
[2020-09-01 20:30] VITALS: BP 166/85
[2020-09-01] MEDS: IV NS 1000 ML 1,000 ML IV PRN (23:38)
[2020-09-02] MEDS: HYDROMORPHONE 1 MG/1 ML DISP.SYRIN IVP PRN ×6 (01:35→21:05)
[2020-09-02 04:35] VITALS: BP 168/96
[2020-09-02] MEDS: PANTOPRAZOLE SODIUM 40 MG TABLET.DR PO SCH (06:03)
--- NOTE | 2020-09-02 06:43 | NUR ---
Pt remained stable throughout the shift. Denies any acute distress or pain at this time. V/S stable on room air. Comfort care and needs attended. Pain managed effectively. Safety precautions in place. Call light within reach. Will endorse to oncoming nurse accordingly.
[2020-09-02] MEDS: JARDIANCE 25 MG PO SCH (09:28)
[2020-09-02] MEDS: RYBELSUS 7 MG PO SCH (09:28)
[2020-09-02] MEDS: ENOXAPARIN SODIUM 100 MG/ML DISP.SYRIN SQ SCH ×2 (09:33→21:04)
[2020-09-02] MEDS: METOPROLOL SUCCINATE XL 25 MG TAB.SR.24H PO SCH (09:53)
[2020-09-02] MEDS: LISINOPRIL 5 MG TABLET PO SCH (09:53)
[2020-09-02] MEDS: HYDROCODONE/APAP 5-325MG TABLET PO PRN (11:40)
[2020-09-02] MEDS ORDERED: CEFAZOLIN 2 G in IV DEXTROSE 5% 100 ML IV SCH (15:00)
[2020-09-02] MEDS ORDERED: VANCOMYCIN IV 1,500 MG in IV DEXTROSE 5% 500 ML IV ONE (15:00)
[2020-09-02 16:47] VITALS: BP 165/93
[2020-09-02] MEDS: IV NS 1000 ML 1,000 ML IV PRN (18:10)
--- NOTE | 2020-09-02 18:39 | NUR ---
Patient is alert and oriented x4. Patient is in no acute distress at this time. Respirations are even and unlabored. Patient complains of pain in right foot and right hip, PRN pain medication administered as prescribed with no adverse reaction noted and with relief of pain. Patient also provided with education about non-pharmacological pain management techniques, able to verbalize understanding. Patient has had no BM, offered PRN bowel regimen, but patient refused medication at this time. Explained risks and benefits to patient, but she continued to refuse. Patient's need met during this shift. Patient made comfortable. Call light and personal belongings placed within reach.
[2020-09-02 20:00] VITALS: BP 165/88
[2020-09-02] MEDS: ACETAMINOPHEN 325 MG TABLET PO PRN (22:57)
[2020-09-03] MEDS: HYDROMORPHONE 1 MG/1 ML DISP.SYRIN IVP PRN ×5 (00:46→13:17)
[2020-09-03] MEDS ORDERED: VANCOMYCIN IV 1,250 MG in IV DEXTROSE 5% 250 ML IV SCH (03:00)
[2020-09-03 04:00] VITALS: BP 162/93
--- NOTE | 2020-09-03 05:02 | NUR ---
Patient had no BM since since admission. Magnesium level high =44. Patient made aware and reason not to be given. Offered and provided prune juice but can not tolerate the taste. Will endorse to oncoming nurse.
[2020-09-03] MEDS: PANTOPRAZOLE SODIUM 40 MG TABLET.DR PO SCH (06:20)
[2020-09-03] MEDS: LISINOPRIL 5 MG TABLET PO SCH (10:00)
[2020-09-03] MEDS: RYBELSUS 7 MG PO SCH (10:00)
[2020-09-03] MEDS: METOPROLOL SUCCINATE XL 25 MG TAB.SR.24H PO SCH (10:01)
[2020-09-03] MEDS: JARDIANCE 25 MG PO SCH (10:01)
[2020-09-03] MEDS: ENOXAPARIN SODIUM 100 MG/ML DISP.SYRIN SQ SCH (10:03)
[2020-09-03 12:04] VITALS: BP 168/92
--- NOTE | 2020-09-03 14:45 | NUR ---
SPOKE WITH SISTER CONNIE REGARDING D/C INSTRUCTIONS REGARDING MEDS. VERBALIZED UNDERSTANDING. P/U SCHEDULED FOR 2740
[2020-09-03 16:09] VITALS: BP 151/92
== END 2020-09-03 14:15 | disposition home health service (06) | DRG 871 ==
LOC: ER 14:05 → TRANSITION 22:14 → MEDSURG3 08-28 01:04
PROVIDERS: ADMIT Internal Medicine; ATTEND Registered Nurse
PROC: 02H633Z Insertion of Infusion Device into Right Atrium, Percutaneous Approach (ICD-10-PCS; principal; 2020-09-01)
PROC: B548ZZA Ultrasonography of Superior Vena Cava, Guidance (ICD-10-PCS; 2020-09-01)
DX: A41.9 Sepsis, unspecified organism (principal); E43 Unspecified severe protein-calorie malnutrition; J18.9 Pneumonia, unspecified organism; L03.115 Cellulitis of right lower limb; N17.9 Acute kidney failure, unspecified; E22.2 Syndrome of inappropriate secretion of antidiuretic hormone; E87.6 Hypokalemia; E11.65 Type 2 diabetes mellitus with hyperglycemia; E86.0 Dehydration; Z20.828 Contact with and (suspected) exposure to other viral communicable diseases; Z76.5 Malingerer [conscious simulation]; Z88.0 Allergy status to penicillin; Z88.2 Allergy status to sulfonamides; Z91.19 Patient's noncompliance with other medical treatment and regimen; L03.031 Cellulitis of right toe; R53.1 Weakness; I10 Essential (primary) hypertension; M51.36 Other intervertebral disc degeneration, lumbar region; E66.9 Obesity, unspecified; Z68.30 Body mass index [BMI] 30.0-30.9, adult; E86.1 Hypovolemia; D17.79 Benign lipomatous neoplasm of other sites; M65.871 Other synovitis and tenosynovitis, right ankle and foot; G89.4 Chronic pain syndrome; S93.691A Other sprain of right foot, initial encounter; X58.XXXA Exposure to other specified factors, initial encounter; Y93.9 Activity, unspecified; Y92.009 Unspecified place in unspecified non-institutional (private) residence as the place of occurrence of the external cause; Z79.84 Long term (current) use of oral hypoglycemic drugs; Z91.041 Radiographic dye allergy status; Z83.3 Family history of diabetes mellitus
CPT/HCPCS: 36415; 70030-TC; 70450; 71045; 73590; 73630; 73721; 83550; 83615; 83690; 83735; 84100; 84300; 84443; 84550; 85025; 85651; 86140; 87040; 87077; 87086; 93005; A4663; G0378; J0690; J1170; J1650; J1815; J1956; J2270; J2405; J3370; J7030; J7060; U0003